=== PATIENT | female | born 2000 | race Caucasian/White ===

== ENCOUNTER 2020-10-25 17:01 | Emergency (ER) | payer MEDICAID ==
[~2020-10-25] VITALS: Ht 165.1 cm; Wt 54.4 kg
[2020-10-25 17:12] VITALS: BP 116/70
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
[2020-10-25 18:10] VITALS: BP 116/70
== END 2020-10-25 18:15 | disposition home or self-care (01) ==
LOC: EDBD 17:01 → EMR 17:24
DX: T76.21XA Adult sexual abuse, suspected, initial encounter (principal); X58.XXXA Exposure to other specified factors, initial encounter; Y92.9 Unspecified place or not applicable
CPT/HCPCS: 99282